=== PATIENT | female | born 1945 | race Hispanic/Latino ===

== ENCOUNTER 2020-03-26 15:08 | Emergency (ER) | payer MEDICARE, OTHER ==
[2020-03-26 15:15] VITALS: BP 186/78
[2020-03-26] MEDS ORDERED: DIPHtheria,PERTUSSIS(ACELL),TETANUS VACCINE/PF 0.5 ML VIAL IM ONE (16:32)
[2020-03-26] MEDS ORDERED: AMOXICILLIN/K CLAV 875/125MG TAB PO ONE (16:33)
[2020-03-26] MEDS ORDERED: LIDOCAINE (2%) 20 MG/1 ML VIAL 20 ML MDV INFILTRATI STA (16:34)
--- NOTE | 2020-03-26 16:39 | Emergency Department Report ---
ED Animal Bite HPI - General Chief Complaint: Animal Bite Stated Complaint: BITE BY PITBULL Time Seen by Provider: 03/26/20 16:27 Source: patient Mode of arrival: Ambulatory Limitations: No Limitations - History of Present Illness MD Complaint: animal bite -: Gradual Left: Forearm (Bite laceration tear actively bleeding) Animal: dog Animal Control Notified: No Description: immunizations unknown Mechanism: bite Pain Description: dull Severity scale (0 -10): 6 Context: unprovoked Associated Symptoms: bleeding Treatments Prior to Arrival: wound dressing(s), pressure - Related Data Previous Rx's Medication Instructions Recorded Last Taken Type Amoxicillin/K Clav Tab [Augmentin 1 each PO BID #20 tablet 03/26/20 Unknown Rx 875MG TAB] Chlorhexidine Gluconate 5 ml TP DAILY #240 liquid 03/26/20 Unknown Rx [Antiseptic Skin Cleanser] traMADoL [Ultram] 50 mg PO Q6HR PRN #20 tablet 03/26/20 Unknown Rx Allergies Allergy/AdvReac Type Severity Reaction Status Date / Time hydrocodone Allergy Itching Verified 03/26/20 15:09 ED Review of Systems ROS: Stated complaint: BITE BY PITBULL Other details as noted in HPI Comment: All other systems reviewed and negative ED Past Medical Hx - Past Medical History Hx Diabetes: Yes Additional medical history: TIA - Surgical History Past Surgical History?: No - Social History Smoking Status: Never Smoker Substance Use Type: None - Medications Home Medications: Home Medications Medication Instructions Recorded Confirmed Last Taken Type Amoxicillin/K Clav Tab [Augmentin 1 each PO BID #20 tablet 03/26/20 Unknown Rx 875MG TAB] Chlorhexidine Gluconate 5 ml TP DAILY #240 liquid 03/26/20 Unknown Rx [Antiseptic Skin Cleanser] traMADoL [Ultram] 50 mg PO Q6HR PRN #20 tablet 03/26/20 Unknown Rx ED Physical Exam - General Limitations: No Limitations General appearance: alert, in no apparent distress - Head Head exam: Present: atraumatic, normocephalic - Eye Eye exam: Present: normal appearance - ENT ENT exam: Present: mucous membranes moist - Neck Neck exam: Present: normal inspection - Respiratory Respiratory exam: Present: normal lung sounds bilaterally. Absent: respiratory distress - Cardiovascular Cardiovascular Exam: Present: regular rate, normal rhythm. Absent: systolic murmur, diastolic murmur, rubs, gallop - GI/Abdominal GI/Abdominal exam: Present: soft, normal bowel sounds - Extremities Exam Extremities exam: Present: normal inspection - Expanded Upper Extremity Exam Left Upper Arm exam: Present: normal inspection Elbow exam: Present: normal inspection Forearm Wrist exam: Present: tenderness, laceration (5 cm arc tear-like laceration to the medial aspect of the distal one third of the forearm with local swelling and ecchymosis. Small puncture wound just outside of that tear laceration also small puncture wound to the hand palmar aspect). Absent: dislocation, erythema, tenderness over anatomical snuff box Vascular: Present: normal capillary refill. Absent: pulse deficit radial art, radial pulse, brachial pulse - Back Exam Back exam: Present: normal inspection. Absent: CVA tenderness (R), CVA tenderness (L) - Neurological Exam Neurological exam: Present: alert, oriented X3, CN II-XII intact - Psychiatric Psychiatric exam: Present: normal affect, normal mood - Skin Skin exam: Present: warm, dry, intact, normal color. Absent: rash ED Course Vital Signs 03/26/20 15:14 Temperature 99.4 F Pulse Rate 89 Respiratory 20 Rate Blood Pressure 186/78 O2 Sat by Pulse 97 Oximetry - Procedure Description Procedures done: Wound prepped and draped in sterile fashion.. Was irrigated with copious copious amounts of saline. Will 1% lidocaine used for anesthesia the wound was explored for foreign bodies. There is evidence of minor tendon injury. Full range of motion was still noted however. Sutures placed x3 for loose wound closure for improved but not complete approximation. Estimated bl ood loss was less than 5 cc been the procedure was tolerated well Critical care attestation.: If time is entered above; I have spent that time in minutes in the direct care o f this critically ill patient, excluding procedure time. ED Disposition Clinical Impression: Dog bite of arm Disposition: DC-01 TO HOME OR SELFCARE Is pt being admited?: No Does the pt Need Aspirin: No Condition: Stable Instructions: Animal Bite (ED), Laceration (ED), Suture Care (ED) Prescriptions: Chlorhexidine Gluconate [Antiseptic Skin Cleanser] 5 ml TP DAILY #240 liquid Amoxicillin/K Clav Tab [Augmentin 875MG TAB] 1 each PO BID #20 tablet traMADoL [Ultram] 50 mg PO Q6HR PRN #20 tablet PRN Reason: Pain Referrals: [facility] [Provider Group] - 3-5 Days
--- NOTE | 2020-03-26 17:34 | XRay Report ---
Left forearm-2 views INDICATION: trauma s/p dog bite. hematoma pain. COMPARISON: None. IMPRESSION: Soft tissue irregularity and swelling over the mid to distal forearm, especially along t he ulnar aspect. No radiopaque foreign body identified. There are also 2 rounded hyperdensities along the radial aspect of the wrist measuring up to 4 mm in maximal dimension which may represent foreign bodies. No acute fracture. Moderately advanced change of the thumb CMC joint. Signer Name: Gustavo De La Cruz MD Signed: 03/26/2020 5:29 PM Workstation Name: [id number]
== END 2020-03-26 18:40 | disposition home or self-care (01) ==
LOC: ED 15:08
DX: S51.812A Laceration without foreign body of left forearm, initial encounter (principal); E11.9 Type 2 diabetes mellitus without complications; Z79.2 Long term (current) use of antibiotics; Z79.899 Other long term (current) drug therapy; Z88.6 Allergy status to analgesic agent; W54.0XXA Bitten by dog, initial encounter; Y93.89 Activity, other specified; Y92.89 Other specified places as the place of occurrence of the external cause; Y99.8 Other external cause status
CPT/HCPCS: 90471; 90715; 99283